=== PATIENT | female | born 1980 | race Caucasian/White ===

== ENCOUNTER 2017-05-18 23:10 | Emergency (ER) | payer OTHER ==
[~2017-05-18] VITALS: Ht 160 cm; Wt 44.5 kg
[2017-05-18 23:26] VITALS: BP 135/85
[2017-05-18] MEDS ORDERED: ATARAX PO STA (23:30)
--- NOTE | 2017-05-18 23:30 | ER.PDOC ---
General Chief Complaint: Requesting Medical Care Stated Complaint: ITCHING Time seen by MD: 23:24 Source: patient Exam Limitations: no limitations History of Present Illness Initial Comments 37 year old white female with pruritic skin rash. Benadryl is not helping. Worried about scabies but she does not have hand lesions. Lesions are mostly located on her back. Timing/Duration: 24 hours Severity: moderate Location: trunk Quality: itchy Identified Cause: no Exposure: other (meth) Allergies: Coded Allergies: No Known Allergies (Unverified , 10/07/15) Home Meds Unable to Obtain Active Prescriptions or Reported Meds Past Medical History Surgical History: appendectomy, Family History Significant Family History: no pertinent family hx Social History Drug Use: Meth (off x 7 days) Constitutional: no symptoms reported EENTM: no symptoms reported Respiratory: no symptoms reported Cardiovascular: no symptoms reported Gastrointestinal: no symptoms reported Genitourinary: no symptoms reported Musculoskeletal: no symptoms reported Skin: see HPI Psychiatric/Neurological: no symptoms reported Endocrine: no symptoms reported Hematologic/Lymphatic: no symptoms reported Physical Exam General Appearance: alert, no distress Skin: warm/dry, skin rash (scattered raised multiple, well delineated) Location: chest, abdomen Character: asymmetric, erythematous Extremities: non-tender, nml ROM, no edema EENT: eyes nml inspection, lips/gums nml, pharynx nml Neck: trachea midline, no swelling Respiratory: no resp. distress, breath sounds nml CVS: reg. rate & rhythm, heart sounds nml Abdomen: non-tender, no organomegaly NEURO/PSYCH: oriented x 3, CN's nml as tested, motor nml, sensation nml, mood/ affect nml Departure Time of Disposition: 23:28 Disposition: 01 HOME, SELF-CARE Impression: Primary Impression: Rash Condition: Stable Referrals: PCP,UNKNOWN (PCP) PRIMARY CARE PROVIDER Additional Instructions: advised cessation of drug use hydroxyzine Vistaril prn follow up pcp rter prn Scripts Unable to Obtain Active Prescriptions or Reported Meds Duration or Time Spent with Pa: DEBBIE BURNETT MD May 18, 2017 23:30
[2017-05-18 23:54] VITALS: BP 135/85
== END 2017-05-18 23:36 | disposition home or self-care (01) ==
LOC: ER 23:10
DX: R21 Rash and other nonspecific skin eruption (principal); F19.10 Other psychoactive substance abuse, uncomplicated
CPT/HCPCS: 99283

== ENCOUNTER 2017-06-06 21:14 | Emergency (ER) | payer OTHER ==
[~2017-06-06] VITALS: Ht 170.2 cm; Wt 49.9 kg
[2017-06-06 21:28] VITALS: BP 133/84
--- NOTE | 2017-06-06 21:43 | ER.PDOC ---
General Chief Complaint: Skin Rash/Abscess Stated Complaint: POSS MITES Time seen by MD: 21:42 Source: patient Exam Limitations: no limitations History of Present Illness Initial Comments Possible mites on skin. Seen in the ED 2 weeks ago for same. Location: generalized Quality: itchy Allergies: Coded Allergies: No Known Allergies (Unverified , 10/07/15) Home Meds Unable to Obtain Active Prescriptions or Reported Meds Past Medical History Medical History: parkinson, thyroid disease, other Surgical History: appendectomy, LMP (females 10-50): last week Social History Smoking: cigarettes, less than 1 pack/day Alcohol Use: none Drug Use: Meth Constitutional: no symptoms reported Respiratory: no symptoms reported Cardiovascular: no symptoms reported Gastrointestinal: no symptoms reported Genitourinary: no symptoms reported Skin: see HPI All Other Systems: Reviewed and Negative Physical Exam General Appearance: alert, no distress Skin: warm/dry, nml color Extremities: non-tender, nml ROM, no edema EENT: eyes nml inspection, lips/gums nml, pharynx nml Neck: trachea midline, no swelling Respiratory: no resp. distress, breath sounds nml CVS: reg. rate & rhythm, heart sounds nml Abdomen: non-tender, no organomegaly NEURO/PSYCH: oriented x 3, CN's nml as tested, motor nml, sensation nml, mood/ affect nml Departure Time of Disposition: 21:44 Disposition: 01 HOME, SELF-CARE Impression: Primary Impression: Skin rash Condition: Stable Referrals: PCP,UNKNOWN (PCP) PRIMARY CARE PROVIDER Additional Instructions: Hydroxyzine F/U with your PCP next week Scripts Unable to Obtain Active Prescriptions or Reported Meds Duration or Time Spent with Pa: 20 mins ANGELINA NOBLES MD Jun 06, 2017 21:43
[2017-06-06 22:01] VITALS: BP 133/84
== END 2017-06-06 21:52 | disposition home or self-care (01) ==
LOC: ER 21:14
DX: R21 Rash and other nonspecific skin eruption (principal); E07.9 Disorder of thyroid, unspecified; G20 Parkinson's disease; F17.210 Nicotine dependence, cigarettes, uncomplicated
CPT/HCPCS: 99283

== ENCOUNTER 2017-09-25 13:59 | Emergency (ER) | payer OTHER ==
[~2017-09-25] VITALS: Ht 182.9 cm; Wt 45.4 kg
[2017-09-25 14:24] VITALS: BP 135/76
--- NOTE | 2017-09-25 14:45 | NUR ---
Arrival Pt ambulated to room. patient states that she has been having the feeling that "bugs" were crawling all over her since and she can not get anyone to believe her. Patient brought worms in a container to show us that they are coming out of orifices such as her vagina, a sore on her ear and in her stool. Pt admits to useing meth 2 days ago but is seeking rehab treatment, but must get the worms treated before she can go to the treatment facility. Patient at this time is in stable condition
--- NOTE | 2017-09-25 15:26 | ER.PDOC ---
General Chief Complaint: General Complaint Stated Complaint: ABSCESS ON NECK TRAVEL OUT OF US: No Time seen by MD: 15:20 Source: patient Exam Limitations: no limitations History of Present Illness Initial Comments Worms coming out of vagina and right neck and some in in stool. Patient brought worms in a plastic bag. Also has itching. All this going on for for days. Severity: moderate Associated Symptoms: denies symptoms Allergies: Coded Allergies: No Known Allergies (Unverified , 10/07/15) Home Meds Unable to Obtain Active Prescriptions or Reported Meds Past Medical History Medical History: COPD, other Surgical History: appendectomy, LMP (females 10-50): last week Social History Smoking: greater than 1 pack/day Alcohol Use: none Drug Use: Meth Review of Systems Constitutional: no symptoms reported EENTM: no symptoms reported Respiratory: no symptoms reported Cardiovascular: no symptoms reported Gastrointestinal: no symptoms reported All Other Systems: Reviewed and Negative Physical Exam General Appearance: No Apparent Distress, WD/WN, Anxious Neck: Non-Tender, Full Range of Motion, Supple, Normal Inspection Respiratory: chest non-tender, lungs clear, normal breath sounds, no respiratory distress CVS: reg rate & rhythm, no murmur, no gallop, pulses nml, nml capillary refill Gastrointestinal: Normal Bowel Sounds, No Organomegaly, No Pulsatile Mass, Non Tender Back: Normal Inspection Extremities: Normal Range of Motion Neurologic/Psychiatric: manager utilization review II-XII NML as Tested Skin: Normal Color Departure Time of Disposition: 15:22 Disposition: 01 HOME, SELF-CARE Impression: Primary Impression: Worm infestation Condition: Stable Referrals: PCP,UNKNOWN (PCP) PRIMARY CARE PROVIDER Additional Instructions: Mebendazole Hydroxyzine F/U with your PCP next week Scripts Unable to Obtain Active Prescriptions or Reported Meds Duration or Time Spent with Pa: 20 mins ANGELINA NOBLES MD Sep 25, 2017 15:26
[2017-09-25 15:40] VITALS: BP 124/68
[2017-09-25 15:50] VITALS: BP 135/76
== END 2017-09-25 15:48 | disposition home or self-care (01) ==
LOC: ER 13:59
DX: B83.9 Helminthiasis, unspecified (principal); J44.9 Chronic obstructive pulmonary disease, unspecified; F17.210 Nicotine dependence, cigarettes, uncomplicated; F15.10 Other stimulant abuse, uncomplicated; Z90.49 Acquired absence of other specified parts of digestive tract
CPT/HCPCS: 99283

== ENCOUNTER 2017-12-02 16:15 | Emergency (ER) | payer OTHER ==
[~2017-12-02] VITALS: Ht 170.2 cm; Wt 45.4 kg
[2017-12-02 16:32] VITALS: BP 115/56
--- NOTE | 2017-12-02 17:11 | ER.PDOC ---
General Chief Complaint: Skin Rash/Abscess Stated Complaint: ABCESS ON NECK TRAVEL OUT OF US: No Time seen by MD: 17:06 Source: patient Exam Limitations: no limitations History of Present Illness Initial Comments Wants medical clearance to go to drug rehab program She has a healing wound in front of her neck. Associated Symptoms: denies symptoms Allergies: Coded Allergies: No Known Allergies (Unverified , 10/07/15) Home Meds Unable to Obtain Active Prescriptions or Reported Meds Past Medical History Medical History: no pertinent history Surgical History: LMP (females 10-50): this week Social History Smoking: less than 1 pack/day Alcohol Use: none Drug Use: none Review of Systems Constitutional: no symptoms reported EENTM: no symptoms reported Respiratory: no symptoms reported Cardiovascular: no symptoms reported Gastrointestinal: no symptoms reported All Other Systems: Reviewed and Negative Physical Exam General Appearance: No Apparent Distress, WD/WN EENT: eyes nml inspection Respiratory: chest non-tender, lungs clear, normal breath sounds, no respiratory distress CVS: reg rate & rhythm, no murmur, no gallop, pulses nml, nml capillary refill Gastrointestinal: Normal Bowel Sounds, No Organomegaly, No Pulsatile Mass, Non Tender Back: Normal Inspection Extremities: Normal Range of Motion Neurologic/Psychiatric: fiscal manager II-XII NML as Tested Skin: Other (healing wound anterior neck) Departure Time of Disposition: 17:08 Disposition: 01 HOME, SELF-CARE Impression: Primary Impression: Encounter for wound re-check Condition: Stable Referrals: PCP,UNKNOWN (PCP) PRIMARY CARE PROVIDER Additional Instructions: Patient medically cleared to go to rehab. Scripts Unable to Obtain Active Prescriptions or Reported Meds Duration or Time Spent with Pa: 20 mins ANGELINA NOBLES MD Dec 02, 2017 17:11
[2017-12-02 17:20] VITALS: BP 101/57
[2017-12-02 17:26] VITALS: BP 101/57
== END 2017-12-02 17:20 | disposition home or self-care (01) ==
LOC: ER 16:15
DX: L02.11 Cutaneous abscess of neck (principal); F17.210 Nicotine dependence, cigarettes, uncomplicated
CPT/HCPCS: 99281

== ENCOUNTER 2017-12-19 12:24 | Emergency (ER) | payer OTHER ==
[~2017-12-19] VITALS: Ht 170.2 cm; Wt 52.2 kg
[2017-12-19 12:50] VITALS: BP 109/58
[2017-12-19] MEDS ORDERED: XYLOCAINE 2%-EPI 1:100,000 ONE (13:38)
--- NOTE | 2017-12-19 14:25 | ER.PDOC ---
General Chief Complaint: General Complaint Stated Complaint: FB ( STUD ) TONGUE, CONCERNED ABOUT THYROID - TSH LEVEL TRAVEL OUT OF US: No Time seen by MD: 14:00 Source: patient Exam Limitations: no limitations History of Present Illness Modifying Factors: improves with immobilization Associated Symptoms: denies symptoms Allergies: Coded Allergies: No Known Allergies (Unverified , 10/07/15) Home Meds Unable to Obtain Active Prescriptions or Reported Meds Past Medical History Medical History: other (HYPOTHYROID) Surgical History: appendectomy, Family History Significant Family History: no pertinent family hx Social History Smoking: less than 1 pack/day Alcohol Use: none Drug Use: none Reviewed Nursing Reviewed: Vital Signs, Abn. Noted Review of Systems All Other Systems: Reviewed and Negative Physical Exam General Appearance: No Apparent Distress EENT: eyes nml inspection, other (STUD IN TONGUE) Neck: Non-Tender Respiratory: chest non-tender CVS: reg rate & rhythm Gastrointestinal: Normal Bowel Sounds Back: Normal Inspection Extremities: Normal Range of Motion Neurologic/Psychiatric: certified drug counselor II-XII NML as Tested Skin: Normal Color Lymphatic: No Adenopathy Additional Procedures Progress FB TONGUE REMOVED UNDER LOCAL ANESTHESIA Course Sepsis Screening Results: Posi: POSITIVE SEPSIS RISK Vitals & review Data Vital Sign - Last 24 Hours 12/02/17 12/19/17 12/19/17 12/19/17 17:26 12:43 12:43 12:50 Temp 98.0 98.4 98.4 98.0 98.4 98.4 Pulse 67 84 59 59 Resp 18 18 18 B/P (MAP) 109/58 (75) Pulse Ox 98 98 O2 Delivery Room Air Room Air Departure Time of Disposition: 15:00 Disposition: 01 HOME, SELF-CARE Impression: Primary Impression: Foreign body of tongue Condition: Improved Referrals: PCP,UNKNOWN (PCP) PRIMARY CARE PROVIDER Scripts Unable to Obtain Active Prescriptions or Reported Meds Duration or Time Spent with Pa: 30 MIN MELANY SOUSA MD Dec 19, 2017 14:25
[2017-12-19 15:05] VITALS: BP 109/58
[2017-12-19 15:07] VITALS: BP 109/58
== END 2017-12-19 15:05 | disposition home or self-care (01) ==
LOC: ER 12:24
DX: T18.0XXA Foreign body in mouth, initial encounter (principal); E03.9 Hypothyroidism, unspecified; Z90.49 Acquired absence of other specified parts of digestive tract; F17.210 Nicotine dependence, cigarettes, uncomplicated; X58.XXXA Exposure to other specified factors, initial encounter; Y93.89 Activity, other specified; Y92.89 Other specified places as the place of occurrence of the external cause; Y99.8 Other external cause status
CPT/HCPCS: 36415; 84439; 84443; 99284

== ENCOUNTER → 2018-03-19 | Outpatient (CLI) | payer MEDICAID ==
[2018-03-19 14:22] LABS: BASOPHIL % 0.5 % (0.0-0.2); EOSINOPHIL # 0.4 10^3/uL (0.0-0.2); EOSINOPHIL % 5.6 % (0.0-5.0); HEMOGLOBIN 13.5 g/dL (12.0-15.0); LYMPHOCYTES % 27.2 % (24.0-44.0); MEAN CELL HGB 30.3 pg (26-34); MEAN CELL HGB CONCENTRATION 34.2 g/dL (33-37); MEAN CORP VOLUME 88.8 fL (78-100); MONOCYTES # 0.6 10^3/uL (0.3-0.8); MONOCYTES % 8.3 % (5.0-12.0); NEUTROPHIL # 4.3 10^3/uL (1.8-7.7); NEUTROPHILS % 58.3 % (41.0-85.0); RED CELL DISTRIBUTION WIDTH 13.6 % (11.5-14.5); WHITE BLOOD CELL 7.3 10^3/uL (4.5-11.0)
--- NOTE | 2018-03-19 15:02 | DIREP ---
PROCEDURE:XRAY SPINE LUMBAR 2-3 VWS COMPARISON:None. INDICATIONS:M53.3 SACROCOCCYGEAL DISODERS FINDINGS: ALIGNMENT:Normal. VERTEBRAE:Normal. DISK SPACES:Early narrowing of the intervertebral disc at L5-S1. SPONDYLOLISTHESIS:None. SACROILIAC JOINTS:Normal. OTHER:Normal. CONCLUSION:Early degenerative disc disease at L5-S1 Dictated by: Bob Gant M.D. on 03/19/2018 at 03:05 PM
--- NOTE | 2018-03-19 15:04 | DIREP ---
PROCEDURE:XRAY SACRUM COCCYX MIN 2VWS COMPARISON:None. INDICATIONS:M53.3 SACROCOCCYGEAL DISODERS FINDINGS: BONES:Normal. JOINTS:Normal. SOFT TISSUES:Normal. OTHER:No additional findings. CONCLUSION:Normal examination. Dictated by: Bob Gant M.D. on 03/19/2018 at 03:07 PM
[2018-03-19 15:14] LABS: CALCIUM 9.2 mg/dL (8.4-10.5)
== END | disposition home or self-care (01) ==
LOC: RAD 14:06
PROVIDERS: ATTEND Internal Medicine
DX: M51.37 Other intervertebral disc degeneration, lumbosacral region (principal); E03.9 Hypothyroidism, unspecified; J44.9 Chronic obstructive pulmonary disease, unspecified; E07.9 Disorder of thyroid, unspecified
CPT/HCPCS: 36415; 72100; 72220; 80053; 80061; 82306; 82607; 83036; 84439; 84443; 85025

== ENCOUNTER → 2018-03-23 | Outpatient (CLI) | payer OTHER ==
--- NOTE | 2018-03-23 13:55 | DIREP ---
PROCEDURE:US THYROID TECHNIQUE:Thyroid ultrasound was performed with a high-frequency transducer. COMPARISON:[facility], US, US THYROID, 04/02/2016, 06:35 PM. INDICATIONS:E04.1 NONTOXIC SINGLE THYROID NODULE FINDINGS: THYROID OVERVIEW Right lobe - size: 5.2 x 1.5 x 2.0 cm, heterogeneous, 0 nodules Isthmus - size: 0.2 cm, heterogeneous, 0 nodules Left lobe - size: 4.3 x 1.7 x 1.6 cm, heterogeneous, 1 nodule THYROID NODULES Left Lobe, #1, Middle 1/3, size: 1.0 x 0.9 x 0.7 cm, prior size: 1.1 x 0.7 x 0.9 cm Description: solid or almost completely solid, very hypoechoic, [id number], smooth TI-RADS: 4, Recommendation: does not meet size criteria for F/U or FNA >>No nodules were prospectively measured on the provided study. The above nodule was measured on previous exam and could be visualized on this exam. The nodules previously measured in the right lobe could not be localized on this study. TI-RADS: 1 = Benign, 2 = Not Suspicious, 3 = Mildly Suspicious, 4 = Moderately Suspicious, 5 = Highly Suspicious Reference: 2017 JACR, ACR Thyroid Imaging, Reporting and Data System (TIRADS): White Paper of the ACR TI-RADS Committee. OTHER:No additional findings. CONCLUSION: 1. Abnormal header thyroid gland, may suggest chronic thyroiditis. Makes visualization of individual nodules difficult, limited reproducibility. Based on TI-RADS criteria (for individual thyroid nodules), no FNA or additional follow-up is required. Dictated by: LIZ Physician on 03/23/2018 at 01:02 PM ld
== END | disposition home or self-care (01) ==
LOC: RAD 11:34
PROVIDERS: ATTEND Internal Medicine
DX: E04.1 Nontoxic single thyroid nodule (principal)
CPT/HCPCS: 76536

== ENCOUNTER 2018-04-14 10:25 | Emergency (ER) | payer OTHER ==
[~2018-04-14] VITALS: Ht 175.3 cm; Wt 62.6 kg
--- NOTE | 2018-04-14 10:25 | NUR ---
Kalen pepper in [facility] - 04/14/18 at 1209 by KOSTA [id number] CAT SCAN PATIENT BACK FROM CAT SCAN, FULL ASSESSMENT COMPLETE, TECHNOLOGY STRATEGIST APPLIED, VITAL SIGNS OBTAINED.
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
--- NOTE | 2018-04-14 10:25 | NUR ---
Kalen pepper in ED - 04/14/18 at 1209 by SPORTER [id number] C-SPINE C-COLLAR REMOVED PER DOCTOR THOMSON VERBAL ORDER.
--- NOTE | 2018-04-14 10:25 | NUR ---
Note shantelle in EDM - 04/14/18 at 1209 by KOSTA [id number] PATIENT HELP C-SPINE, LOGGED ROLLED WITH STAFF, ABRASION NOTED TO LEFT SCAPULA AREA. TENDER TO TOUCH. PATIENT THEN ROLLED SUPINE, AWAITING CAT CAN RESULTS.
--- NOTE | 2018-04-14 10:25 | NUR ---
Kalen pepper in [facility] - 04/14/18 at 1209 by SPORTER [id number] CATSCAN PATIENT STRAIGHT TO CAT SCAN AFTER IMMOBLIZATION.
--- NOTE | 2018-04-14 10:44 | ER.PDOC ---
General Chief Complaint: Requesting Medical Care Stated Complaint: FLU SYMPTOMS Time seen by MD: 10:40 Source: patient Exam Limitations: no limitations History of Present Illness Initial Comments Pt started over the weekend with cough, fever, shortness of breath, malaise Timing/Duration: gradual Severity: moderate Associated Symptoms: fever/chills, cough, productive cough, mild SOB, hurts to breath Allergies: Coded Allergies: No Known Allergies (Unverified , 10/07/15) Home Meds Unable to Obtain Active Prescriptions or Reported Meds Constitutional: see HPI EENTM: see HPI Respiratory: see HPI All Other Systems: Reviewed and Negative Past Medical History Surgical History: appendectomy, Social History Drug Use: none Physical Exam General Appearance: alert, no distress Eye: eyes nml inspection, lids & conjunct. nml, PERRL, no nystagmus Ear: ear nml Nose: nose nml Throat: pharynx nml, airway nml Neck: nml inspection, supple Respiratory: no resp.distress, rhonchi (bilaterally) Abdomen: non-tender, no organomegaly CVS: reg rate & rhythm, heart sounds nml Skin: color nml, no rash, warm/dry Extremities: non-tender, nml ROM, no pedal edema NEURO/PSYCH: oriented x 3, CN's nml as tested, motor nml, sensation nml, mood/ affect nml Results/Orders Results/Orders Laboratory Tests Test 04/14/18 10:38 Influenza Type A Antigen POSITIVE (NEG) Influenza B Immunofluorescence NEGATIVE (NEG) Group A Streptococcus Screen NEGATIVE (NEGATIVE) Departure Time of Disposition: 11:03 Disposition: 01 HOME, SELF-CARE Impression: Primary Impression: Influenza A Additional Impression: Bronchitis Condition: Stable Patient Instructions: Acute Bronchitis, [id number] Referrals: FERNANDO ANTUNEZ MD (PCP) PRIMARY CARE PROVIDER Scripts Unable to Obtain Active Prescriptions or Reported Meds Duration or Time Spent with Pa: 15 Problem Qualifiers CODY THOMSON MD Apr 14, 2018 10:44
[2018-04-14 10:49] VITALS: BP 121/73
[2018-04-14 10:55] LABS: STREP SCREEN NEGATIVE (NEGATIVE)
--- NOTE | 2018-04-14 11:12 | DIREP ---
PROCEDURE:CHEST 1 VIEW COMPARISON:None. INDICATIONS:Cough, fever FINDINGS: LUNGS/PLEURA:No significant pulmonary parenchymal abnormalities. No effusions. VASCULATURE:Normal. Unremarkable pulmonary vasculature. CARDIAC:Normal. No cardiac silhouette abnormality or cardiomegaly. MEDIASTINUM:Normal. No visible mass or adenopathy. BONES:Normal. No fracture or visible bony lesion. OTHER:Negative. CONCLUSION:Normal examination. Dictated by: Devaughn Raygoza MD on 04/14/2018 at 11:09 AM
[2018-04-14 11:14] VITALS: BP 125/63
[2018-04-14 11:16] VITALS: BP 125/63
== END 2018-04-14 11:17 | disposition home or self-care (01) ==
LOC: ER 10:25
DX: J10.1 Influenza due to other identified influenza virus with other respiratory manifestations (principal); J40 Bronchitis, not specified as acute or chronic
CPT/HCPCS: 71045; 87070; 87804; 87880; 99284